=== PATIENT | male | born 1960 | race Caucasian/White ===

== ENCOUNTER 2019-02-16 06:41 | Day surgery (SDC) | payer OTHER ==
[2019-02-16 07:09] VITALS: BMI 37.0
[2019-02-16] MEDS ORDERED: BUPIVACAINE HCL/PF 2.5 MG/ML - 30 ML VIAL IJ ONE (07:10)
[2019-02-16] MEDS ORDERED: EPINEPHrine 1:1,000 1 MG/1 ML - 30ML VIAL (INJECTION) ONE (07:10)
[2019-02-16] MEDS ORDERED: PROPOFOL 20 ML ONE ×2 (07:31)
[2019-02-16] MEDS ORDERED: MIDAZOLAM HCL 2 MG/2 ML SINGLE DOSE VIAL ONE (07:31)
[2019-02-16] MEDS ORDERED: LIDOCAINE HCL/PF 2% SDV 5ML VIAL ONE (07:32)
[2019-02-16] MEDS ORDERED: SUCCINYLCHOLINE CHLORIDE 200 MG/10 ML VIAL ONE (07:32)
[2019-02-16] MEDS ORDERED: SEVOFLURANE 250 ML BTL ONE (07:35)
[2019-02-16] MEDS ORDERED: KETOROLAC TROMETHAMINE 30 MG/1 ML VIAL ONE (07:49)
[2019-02-16] MEDS ORDERED: ceFAZolin SODIUM 1 GM VIAL ONE (07:49)
[2019-02-16] MEDS ORDERED: ONDANSETRON 4 MG/2 ML VIAL ONE (07:49)
[2019-02-16] MEDS ORDERED: DEXAMETHASONE SOD PHOSPHATE 4 MG/1 ML VIAL ONE (07:49)
[2019-02-16] MEDS ORDERED: BUPIVACAINE HCL/PF 0.25% (2.5MG/ML) 10 ML VIAL IJ ONE (08:23)
[2019-02-16] MEDS ORDERED: oxyCODONE HCL 5 MG TABLET PO PRN ×2 (08:36)
[2019-02-16] MEDS ORDERED: PROMETHAZINE HCL 25 MG/1 ML VIAL IVPUSH PRN (08:36)
[2019-02-16] MEDS ORDERED: ONDANSETRON 4 MG/2 ML VIAL IVPUSH PRN (08:36)
--- NOTE | 2019-02-16 10:29 | OP ---
DATE OF OPERATION: 02/16/2019 LOCATION: [facility] SURGEON: Chava Lozoya MD MANUFACTURING PROJECT MANAGER: JOSE rAias POSTOPERATIVE DIAGNOSES: 1. Left knee medial and lateral meniscal tear. 2. Left knee cartilage injury. 3. Left knee synovitis. POSTOPERATIVE DIAGNOSES: 1. Left knee medial and lateral meniscal tear. 2. Left knee cartilage injury. 3. Left knee synovitis. PROCEDURE: 1. Left knee arthroscopy with partial meniscectomy, medial and lateral meniscus. CPT code 77497. 2. Left knee arthroscopy with chondroplasty and abrasoplasty. CPT code 28106. 3. Left knee arthroscopy with synovectomy. CPT code 37609. FINDINGS: 1. Medial meniscus body to posterior horn tear, central two-thirds, posterior 20%. 2. Lateral meniscus posterior horn tear. 3. Synovitis patellofemoral, mediolateral notch area. 4. Grade 2-3 cartilage injury with diffuse grade 2-3 changes medial femoral condyle and tibial plateau. 5. ACL and PCL intact. 6. Diffuse grade 1-2 changes lateral joint line. 7. Grade 2-3 cartilage injury to patella with grade 2-4 changes patellofemoral trochlea. PROCEDURE: Informed consent was obtained. The patient came to the operating room, where the lower extremity was prepped and draped in a sterile fashion. A tourniquet was placed on the upper thigh, but not inflated. Using standard arthroscopic technique, a lateral incision and portal was made to allow for introduction of the camera into the suprapatellar bursa. This was then taken to the medial joint line, where under direct visualization, a medial incision and portal was made. Excessive synovium noted in the medial, lateral and patellofemoral and notch area was removed by an upbiter, shaver and Bovie cautery. This was found to bring in inflammatory tissue into the joint surface, a source of pain and dysfunction. Probing of the medial and lateral meniscus found tears, as described in the findings. These were removed with the upbiter and shaver and taken back to a stable rim. Grade 2 to 3 degenerative changes were treated with a chondroplasty, removing all flaking surfaces with low-setting Bovie along the periphery to prevent further flaking. Grade 4 changes, as noted, were treated with an abrasoplasty, creating a bleeding surface at the bone/cartilage interface. Aggressive debridement with shaver/mindy created bleeding surface. Micro fracture also done when indicated in findings. All areas of the knee were once again reexamined. The knee was then drained and a single suture was placed in all portals. A sterile dressing was placed and the patient was transferred to the recovery room without complication. The PA listed above was present and assisted at surgery. Their presence was absolutely medically necessary for the completion of the procedure. They helped hold the arthroscopy, pass instruments (and implants when indicated) and the procedure could not have been completed without their assistance. CHAVA LOZOYA M.D. [id number]
[2019-02-16 10:31] VITALS: TEMP 98.2
[2019-02-16 10:33] VITALS: BP 152/93; PULSE 82
--- NOTE | 2019-02-19 15:26 | PATH ---
Surgical Pathology Report Patient Name: YULI AGUDELO [facility]. Rec. #: [id number] /Age/Gender: 1960 (Age: 58) / M Account: [id number] Location: [facility] Taken: 02/16/2019 Received: 02/16/2019 Reported: 02/19/2019 Physicians: Chava Dixon M.D. Specimen(s) Received LEFT KNEE SHAVING Clinical History Internal derangement left knee Final Diagnosis KNEE SHAVINGS, LEFT, ARTHROSCOPY, LATERAL MENISCECTOMY, CHONDROPLASTY: FRAGMENTS OF CARTILAGE, DENSE FIBROCONNECTIVE TISSUE, ADIPOSE TISSUE, AND REACTIVE, SYNOVIUM. Electronically Signed [place] Lewis M.D. Gross Description Received in formalin, labeled "left knee shavings," is a 4.0 x 3.5 x 0.3 cm. aggregate of balderas-yellow soft tissue fragments. A sales representative jewelry portion is submitted in one cassette. /02/16/2019 [facility]02/16/2019
== END 2019-02-16 10:30 | disposition home or self-care (01) ==
LOC: FASU 06:41
PROVIDERS: ATTEND Orthopaedic Surgery
PROC: 0SBD4ZZ Excision of Left Knee Joint, Percutaneous Endoscopic Approach (ICD-10-PCS; 2019-02-16)
PROC: 0SBD4ZZ Excision of Left Knee Joint, Percutaneous Endoscopic Approach (ICD-10-PCS; 2019-02-16)
PROC: 0SBD4ZZ Excision of Left Knee Joint, Percutaneous Endoscopic Approach (ICD-10-PCS; principal; 2019-02-16 07:30)
DX: S83.242A Other tear of medial meniscus, current injury, left knee, initial encounter (principal); S83.282A Other tear of lateral meniscus, current injury, left knee, initial encounter; S83.8X2A Sprain of other specified parts of left knee, initial encounter; M65.862 Other synovitis and tenosynovitis, left lower leg; X58.XXXA Exposure to other specified factors, initial encounter; Y93.9 Activity, unspecified; Y92.9 Unspecified place or not applicable
CPT/HCPCS: 88304-TC; 94760